=== PATIENT | female | born 1965 | race Caucasian/White ===

== ENCOUNTER 2023-09-07 13:39 | Outpatient (CLI) | payer OTHER, SELFPAY ==
--- NOTE | ~2023-09-07 | US_ITS ---
EXAMINATION: US art doppler w press LE BI DATE: 09/07/2023 14:35 INDICATION: Peripheral vascular disease TECHNIQUE: Segmental pressures and plethysmographic and Doppler waveforms of the brachial and lower e xtremity arteries were obtained. COMPARISON: None. FINDINGS: Right and left brachial artery pressures of 107 mm Hg and 116 mm Hg, respectively, are concordant (no rmal difference <= 30 mmHg). The right and left high-thigh pressure indices are 0.98 and 1.32, respec tively (normal > 1.2). The right ankle-brachial index (DAVY) is 0.79 (normal >= 0.9-1). The right great toe-brachial index (T BI) is 0.51 (normal >= 0.6-0.8). The right lower extremity segmental pressure gradients are increased between the arteries throughout the right lower limb and each of the corresponding arteries at the l eft lower limb (normal gradients <= 20-30 mmHg between adjacent levels on the same leg or the same le vels on the two legs). No abnormal increased gradients within the right lower limb. Arterial waveform s are monophasic but with normal brisk systolic upstrokes throughout the arteries of the right lower limb. The left DAVY is 1.14. The left TBI is 0.56. The left lower extremity segmental pressure gradients are increased between the left [id number] popliteal artery and the left dorsalis pedis artery. Arter ial waveforms are biphasic with brisk systolic upstrokes throughout the arteries of the left lower li mb. IMPRESSION: 1. Arterial occlusive disease to the right lower limb likely occurring along the right iliac arteries with mildly decreased right high thigh pressure index, DAVY and TBI and with increased pressure gradi ents at each level relative to the contralateral left lower limb and with monophasic waveforms beginn ing at the high thigh. 2. Arterial occlusive disease in the right lower limb likely occurring more distally with normal left DAVY but mildly decreased left TBI. Reviewed, dictated and finalized at location A. 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 Arterial occlusive disease to the right lower limb likely occurring along th e right iliac arteries with mildly decreased right high thigh pressure index, A BI and TBI and with increased pressure gradients at each level relative to the contralateral left lower limb and with monophasic waveforms beginning at the hi gh thigh. 2. Arterial occlusive disease in the right lower limb likely occurring more dis tally with normal left DAVY but mildly decreased left TBI.
== END 2023-09-07 13:40 | disposition home or self-care (01) ==
LOC: ANHIMG 13:39
PROVIDERS: PCP Family Medicine Adolescent Medicine; Visit Provider Family Medicine Adolescent Medicine
DX: I70.0 Atherosclerosis of aorta (principal); I77.89 Other specified disorders of arteries and arterioles
CPT/HCPCS: 93923

== ENCOUNTER 2024-03-01 07:57 | Outpatient (CLI) | payer OTHER, SELFPAY ==
--- NOTE | ~2024-03-01 | XR_ITS ---
EXAMINATION: XR hip BI wo pelvis DATE: 03/01/2024 08:26 INDICATION: Bilateral inguinal pain. TECHNIQUE: 2 views of each hip were obtained. COMPARISON: None. FINDINGS: Bone alignment is normal. No fracture. There is mild lumbar spondylosis. There is mild oste oarthritis of the hips. IMPRESSION: 1. Mild osteoarthritis of the hips. Reviewed, dictated and finalized at location A.
== END 2024-03-01 07:58 | disposition home or self-care (01) ==
PROVIDERS: PCP Family Medicine Adolescent Medicine; Visit Provider Family Medicine Adolescent Medicine
DX: M16.0 Bilateral primary osteoarthritis of hip (principal)
CPT/HCPCS: 73521

== ENCOUNTER 2025-04-04 13:17 | Outpatient (CLI) | payer OTHER, SELFPAY ==
--- OUTSIDE RECORDS SUMMARY | 2000-02-18 03:15 | XMS_ITS | Continuity of Care Document ---
Author Organization [facility] Address [address] [place] [address] Phone Care Team Providers Care Flume Tender Name Role Phone Sharlene Arcos Unavailable Unavailable Advance Directives Directive Yes / No Effective Date File Name No Information Encounters Encounter Description Practice Location Reason(s) For Visit Diagnoses Date Provider Providers Copied on Encounter [facility], [address], [place], [place], [id number], [place] tel:[phone] [facility] (formerly [facility]) No Information [phone] Josselyn Su. [address] , [address], [place], [address], [place]. tel:[phone] Family History Family Member Type Diagnosis Age At Onset No Information Payers Payer name Insurance type Covered libertarian ID Authoriza tion(s) No Information Social History Type Description Quantity Date Captured Comments Sex Female Smoking Status No Information Chief Complaint And Reason For Visit No Information Reason For Referral Reason For Referral No Information History Of Present Illness Encounter Date Complaint History Of Prese nt Illness No Information Functional Status Date Functional Assessmen t No Information Instructions Date Instruction Additional Infor mation No Information Assessments Type Assessment Date No Information Patient Care Teams Name Effective Dates (start - stop) Status Members No Information
--- OUTSIDE RECORDS SUMMARY | 2012-02-08 07:00 | XMS_ITS | Continuity of Care Document ---
Author Organization [facility] Address [address] [place] [address] Phone Care Team Providers Care Circus Artist Name Role Phone Unavailable Unavailable Unavailable Medications Medication Instructions Dosage Effective Dates (start - stop) Status Comments amoxicillin 500 mg Cap take 1 capsule (500MG) by ORAL route every 8 hours 500 MG - Active hydrocodone-acetamin ophen 5 mg-325 mg Tab take 1 tablet by oral route every 6 hours as needed for pain 1.00 tablet - Active Procedures Procedure Date Periapical first film Limit oral eval problem focused 012 Extraction erupted tooth or exposed root Advance Directives Directive Yes / No Effective Date File Name No Information Encounters Encounter Description Practice Location Reason(s) For Visit Diagnoses Date Provider Providers Copied on Encounter [facility] , [address], [place], [place], [id number], tel:[phone] DO NOT USE [facility] Dental examination No Information Family History Family Member Type Diagnosis Age [...]
--- OUTSIDE RECORDS SUMMARY | 2025-04-04 14:59 | XMS_ITS | Clinical Summary ---
Author Organization [facility] [address] Address [address] [place] [address] Care Team Providers Care Rotary Adjuster Name Role Phone Tony Herrera MD Primary Care Prov ider Tony Richards MD Unavailable [phone] Allergies Active Allergy Reactions Criticality Noted Date Comments Codeine Nausea And Vomiting 09/01/2013 Medications venlafaxine XR (EFFEXOR-XR) 150 mg 24 hr capsule Take 1 capsule (150 mg total) by mouth daily 09/18/2023 Active traZODone (DESYREL) 100 mg tablet TAKE 2 TO 3 TABLETS BY MOUTH EVERY NIGHT AT BEDTIME NEEDED FOR SLEEP Active risperiDONE (RisperDAL) 1 mg tablet Take 1 tablet (1 mg total) by mouth nightly at bedtime 09/18/2023 Active lamoTRIgine (LaMICtal) 100 mg tablet Take 1 tablet (100 mg total) by mouth daily 09/18/2023 Active clonazePAM (KlonoPIN) 0.5 mg tablet Take 1 tablet (0.5 mg total) by mouth as needed for anxiety Active acetaminophen (TYLENOL) 500 mg tablet TAKE 2 TABLETS BY MOUTH FOUR TIMES DAILY NEEDED FOR PAIN 09/13/2023 Active ARIPiprazole (ABILIFY) 5 mg tablet Take 1 tablet (5 mg total) by mouth daily Active Symbicort 160-4.5 mcg/actuation inhaler INHALE 2 PUFFS BY MOUTH EVERY 12 HOURS 09/01/[address] (VOLTAREN) 75 mg EC tablet Take 1 tablet (75 mg total) by mouth 2 (two) times a day 10/04/2023 Active eletriptan (RELPAX) 40 mg tablet Take 1 tablet (40 mg total) by mouth daily as needed Active ergocalciferol (VITAMIN D) 50,000 unit capsule Take 1 capsule (50,000 Units total) by mouth once a week Active naproxen (NAPROSYN) 500 mg tablet Take 1 tablet (500 mg total) by mouth 2 (two) times a day 10/09/2023 Active nicotine (NICODERM CQ) 21 mg 08/08/2023 Active sertraline (ZOLOFT) 100 mg tablet Take 2 tablets (200 mg total) by mouth daily Active aspirin 81 mg enteric coated tablet TAKE 1 TABLET BY MOUTH ONCE DAILY 90 tablet 2 09/12/2024 Active Active Problems Problem Noted Date Diagnosed Date Atherosclerosis of unga ar car of both lower extremities with intermittent claudication 09/22/2023 Assessment & Plan (08/28/2024 2:03 PM HYDRAULIC ENGINEER): Status post balloon angioplasty and stenting bilateral common iliac arteries. Patient continues to do well symptoms have improved she was overall pleased with the result. Follow up 6 months with duplex surveillance. Assessment & Plan (12/30/2023 10:49 AM CDT): Impression: Patient is status post balloon angioplasty right common iliac artery and stent placement of bilateral common iliac arteries for treatment of disabling claudication. Patient continues to complain of bilateral groin pains however symptoms of claudication have significantly improved. Percutaneous sites have healed. Lower extremity arterial duplex reveals patent stents with triphasic waveforms. Plan: Patient to continue ongoing risk factor modifications. -patient to follow-up in 6 months for re-evaluation with repeat lower extremity arterial duplex. Assessment & Plan (12/15/2023 10:01 AM CDT): Status post lithotripsy balloon angioplasty to the right common iliac artery and stenting to bilateral common iliac arteries 10/21/2023. Some tenderness has been noted to the left groin with certain positions. Denies any claudication symptoms or rest pain. Has not had a follow-up scan yet. Was initially scheduled for her postop scan in January. I will move this up to the next week or 2. Assessment & Plan (11/21/2023 9:29 AM CDT): Patient doing great following iliac stenting. Her symptoms have resolved completely and she is pleased with the result. Continue anti-platelet therapy follow up 3 months. Assessment & Plan (09/22/2023 3:20 PM HYDRAULIC ENGINEER): Impression: Patient complains of symptoms of claudication at calf level to her right lower extremity after walking 2 blocks. She denies any ischemic rest pain or ulcerations. Plan: Recommend patient to follow-up in 2 weeks for re-evaluation with lower extremity arterial Doppler. Immunizations Immunization Administration Dates Next Due Influenza, Quadrivalent, Spl it, Preservative Free, Intramuscular 05/11/2023 Surgical History Surgery Date Site/Laterality Comments SECTION X2 HYSTERECTOMY LITHOTRIPSY 10/21/2023 Right Aortogram. BLE angiogram. Lithotripsy BA RT SHASHA. Stenting Kaden SHASHA Family History Medical History Relation Name Comments Cancer Father No Known Problems Mother Relation Name Status Comments Father Mother Social History Tobacco Use Types Packs/Day Years Used Date Smoking Tobacco: Every Day Vaping Tobacco Cessation:Ready to Q uit: Not Asked; Counseling Given: Not Answered Personal Safety Answer Date Recorded Have you ever been in or are you currently in a harmful physical or emotional relationship or is someone making you feel afraid or unsafe? Denies 10/21/2023 Comments Unknown Sex and Gender Information Value Date Recorded Sex Assigned at Not on file Legal Sex Female 12:27 PM HYDRAULIC ENGINEER Gender Identity Not on file Sexual Orientation Not on file Obstetrics History Last Filed Vital Signs Vital Sign Reading Time Taken Comments Blood Pressure 131/71 08/15/2024 10:31 AM HYDRAULIC ENGINEER Pulse 58 08/15/2024 10:31 AM HYDRAULIC ENGINEER Temperature 36.2 C (97.1 F) 10/21/2023 12:40 PM CDT Respiratory Rate 16 10/21/2023 2:00 PM CDT Oxygen Saturation 99% 10/21/2023 2:00 PM CDT Inhaled Oxygen Concentration - - Weight 59 kg (130 lb) 08/15/2024 10:31 AM HYDRAULIC ENGINEER Height 157.5 cm (5' 2) 08/15/2024 10:31 AM HYDRAULIC ENGINEER Body Mass Index 23.78 08/15/2024 10:31 AM HYDRAULIC ENGINEER Plan of Treatment Health Maintenance Due Date Last Done Comments Breast Cancer Screening-Mammogram 1964 Colon Cancer Screening-Colonoscopy 1964 Depression Screening 1964 Hepatitis C Screening 1964 DTaP/Tdap/Td Vaccine (1 - Tdap) 1975 Hepatitis B Screening 1982 Regular Well Visit/Exam 18-64 1982 Pneumococcal vaccine <65 (1 of 2 - PCV) 1983 Zoster Vaccine (1 of 2) 2014 Influenza Vaccine (#1) 2025 05/11/2023 Medical Devices Implanted Type Area Compositor Apprentice Device Identifier Shelf Expiration Date Model / Serial / Lot [employer] Lifestream 6mm 26mm 80cm Balloon Expandable Low Profile Cover [id number] - [id number] Implanted:Qty: 1 on 10/21/2023 by Tony Richards MD at [facility] [employer] [id number] / / [employer] Lifestream 6mm 26mm 135cm Balloon Expandable Low Profile Cover [id number] - [id number] Implanted:Qty: 1 on 10/21/2023 by Tony Richards MD at [facility] [employer] [id number] / / [employer] Device Clsr Perclose Prostyle Sut-Mediatd Closure-Repair Sys [id number] - [id number] Implanted:Qty: 1 on 10/21/2023 by Tony Richards MD at [facility] [employer] [id number] / / [employer] Device Clsr Perclose Prostyle Sut-Mediatd Closure-Repair Sys 19034-09 - [id number] Implanted:Qty: 1 on 10/21/2023 by Tony Richards MD at [facility] [employer] [id number] / / Insurance [facility] Care Teams Rotary Adjuster Relationship Specialty Start Date End Date Tony Herrera MD PCP - General Family Medicine 09/09/23 Tony Richards MD [address] [place] [address] Surgeon Surgery 10/21/23
== END 2025-04-04 13:18 | disposition home or self-care (01) ==
LOC: ANHAUDIO 13:18
PROVIDERS: PCP Family Medicine Adolescent Medicine; Visit Provider Family Medicine
DX: H90.3 Sensorineural hearing loss, bilateral (principal)
CPT/HCPCS: 92557; 92567